=== PATIENT | male | born 1965 | race Caucasian/White ===

== ENCOUNTER 2020-09-13 19:11 | Emergency (ER) | payer OTHER, MEDICAID, SELFPAY ==
--- NOTE | ~2020-09-13 | XR_ITS ---
EXAMINATION: XR chest 1V portable EXAM DATE: 09/13/2020 19:53 INDICATION: Transient alteration of awareness. Frequent falls. TECHNIQUE: Portable AP frontal chest x-ray was obtained. There is no prior study for comparison. FINDINGS: The lungs are clear. There are no pleural effusions. The cardiomediastinal silhouette is within normal limits. There is no pneumothorax suspected. The bones and soft tissues are unremarkab le. Thoracic aortic endograft. IMPRESSION: No acute cardiopulmonary findings. Reviewed, dictated and finalized at location A. [employer]
--- NOTE | ~2020-09-13 | CT_ITS ---
EXAMINATION: CT brain wo con EXAM DATE: 09/13/2020 20:52 INDICATION: Fall. Transient alteration of awareness.. TECHNIQUE: Spiral CT of the head was performed without contrast. Axial, coronal and sagittal images were reviewed. The dose-length product (DLP) for this examination was 605.33 mGy-cm. The exposure w as tailored according to patient size, and iterative reconstruction (ASIR) was used as additional dos e reduction technique. There is no prior study for comparison. FINDINGS: There is moderate-sized region of right frontal lobe encephalomalacia inferiorly, and small region of left frontal lobe inferolaterally. Location suggests that these could be locations of prio r hemorrhagic contusions. There is small right frontal subdural fluid collection, measuring up to 9 m m in maximal thickness, and 12 Hounsfield units, slightly proteinaceous. Suspect much smaller similar density subdural fluid collection on the left anteriorly. These could be chronic subdural hematomas. No evidence of acute component, acute intraparenchymal hemorrhage, brain mass or obstructive hydrocep halus. There is mild microangiopathy and cerebral atrophy. Left-sided cataract surgery. There are no osseous abnormalities identified. Ethmoid, frontal, sphenoid sinuses and mastoid air cells are well a erated. IMPRESSION: 1. Small right, minimal left subdural fluid collections most likely chronic subdural hematomas. 2. Bifrontal encephalomalacia. 3. Mild microangiopathy and atrophy. Reviewed, dictated and finalized at location . [employer]DER IMPRESSION: 1. Small right, minimal left subdural fluid collections most likely chronic enrique bdural hematomas. 2. Bifrontal encephalomalacia. 3. Mild microangiopathy and atrophy.
[2020-09-13 19:11] VITALS: BP 139/95; PULSE 87; RESP 18; TEMP 36.9; O2SAT 100
[2020-09-13 19:52] LABS: Basophils Absolute Auto 0.1 K/mm3 (0.0-0.1); Basophils Percent Auto 0.7 % (0.2-1.2); Eosinophils Percent Auto 0.4 % (0-4.4); Hemoglobin 12.3 g/dL (14.0-18.0); Immature Granulocyte Absolute 0.02 K/mm3 (0.00-0.031); Immature Granulocyte Percent A 0.2 % (0-0.5); Lymphocytes Absolute Auto 3.29 K/mm3 (0.9-3.2); Lymphocytes Percent Auto 32.5 % (18.3-44.2); Mean Corpuscular HGB Conc 31.5 g/dl (32-36); Mean Corpuscular Hemoglobin 29.3 pg (26-34); Mean Corpuscular Volume 92.9 fl (80-100); Mean Platelet Volume 10.5 fl (7.4-10.4); Monocytes Absolute Auto 0.8 K/mm3 (0.1-0.6); Monocytes Percent Auto 7.4 % (2.6-8.5); Neutrophils Percent Auto 58.8 % (45.5-73.1); Platelet Count Result 381 k/mm3 (150-375); Red Cell Distribution Width 15.1 % (11.5-14.5); White Blood Count 10.1 K/mm3 (4.5-10.0)
[2020-09-13 20:01] LABS: Prothrombin Time 13.3 Seconds (11.1-14.7)
[2020-09-13 20:02] LABS: Partial Thromboplastin Time 31.8 SECONDS (22.3-36.8)
[2020-09-13 20:04] LABS: Alanine Aminotransferase 21 U/L (4-50); Albumin Level 3.8 g/dL (3.5-5.1); Alkaline Phosphatase 192 U/L (38-126); Anion Gap 6 mmol/L (8-16); Aspartate Amino Transferase 32 U/L (17-59); Bilirubin,Total 0.3 mg/dL (0.2-1.3); Blood Urea Nitrogen 21 mg/dL (9-20); Calcium 9.3 mg/dL (8.4-10.2); Carbon Dioxide 32 mmol/L (22-30); Chloride 101 mmol/L (98-107); Estimated CRCL calculation 82 ml/min; Estimated Glomerular Filt Rate > 60; Glucose 116 mg/dL (75-110); Potassium 4.2 mmol/L (3.4-5.0); Sodium 139 mmol/L (137-145)
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
--- NOTE | 2020-09-13 23:22 | PC.NURSE ---
Addendum entered by Sushila Ace 09/14/20 04:08: 0406: Called [facility] for ETA status...ETA 0500 Addendum entered by Sushila Ace 09/14/20 02:25: 0225: [facility] called with updated status...ETA 0415. Addendum entered by Sushila Ace 09/14/20 01:49: 0148: Called [facility] for status...ETA 0300. 911 calls exceeding availability Addendum entered by Sushila Ace 09/14/20 00:31: 0031: Called [facility] for ETA status...ETA 0145 Addendum entered by Sushila Ace 09/13/20 23:31: 2330: Called [facility]...declined, do not have the resources. Addendum entered by Sushila Ace 09/13/20 23:28: 2327: Called [facility]...declined, do not have the resources. Original Note: 2112: Called [facility] to transport patient to [facility]...ETA 2200 2205: Updated ETA 20 minutes (2225) 2228: Updated ETA 2300 2320: 12 midnight 2321: Called [facility]...declined.
== END 2020-09-14 05:13 ==
PROVIDERS: Emergency Provider General Practice
DX: R46.89 Other symptoms and signs involving appearance and behavior (principal); Z87.820 Personal history of traumatic brain injury; E11.9 Type 2 diabetes mellitus without complications
CPT/HCPCS: 36415; 70450; 71045; 80053; 85025; 85610; 85730; 99284